=== PATIENT | female | born 1950 | race Caucasian/White ===

== ENCOUNTER 2022-02-25 00:33 | Day surgery (SDC) | payer MEDICARE, SELFPAY ==
[2022-02-07 15:41] VITALS: BMI 24.5
--- NOTE | 2022-02-24 14:26 | PM.HPGS ---
History of Present Illness History of Present Illness Consent: Risks, benefits, and alternatives have been discussed and questions answered. Patient agrees to proceed with procedure. Chief complaint: GERD Narrative: Rupinder Galvez is a 71 year old female Referred for investigation of chronic gastroesophageal reflux. She often has the discomfort after spicy foods. The discomfort can be just to the right of the epigastric area it will feel like a fullness lasting an hour so. She denies nausea vomiting or dysphagia. She has taken cljx-[id number] acid reducers and also Gas-X which seemed to give her some relief Review of Systems Review of Systems: All systems reviewed & are unremarkable except as noted in HPI and below PMFSH Past Medical History Medical History Allergies Anxiety Diverticular disease Hemorrhoids HLD (hyperlipidemia) HTN (hypertension) Mitral valve prolapse Post-menopausal Surgical History Surgical History History of bladder surgery History of hysterectomy Family History Family History Mother Patient's mother is Father Patient's father is Sibling Heart disease Hypertension Malignant neoplasm of prostate Social History Social History Smoking packs per day: 0.5 Smoking cigarettes per day: 10.0 Years smoked: 20 Smoking pack-years: 10.00 Smoking status: Former smoker Tobacco type: cigarettes Second hand tobacco smoke exposure: Yes Smoking end date: 10/16/08 Alcohol intake: never Substance use: never Substance use type: does not use Living arrangements: alone Gender identity (if verbalized by the patient): Female Spiritual care concerns: No Meds Home Medications and Allergies Home Medications Medication Instructions Recorded Confirmed Type alprazolam 0.25 mg tablet 0.25 mg PO TID PRN #90 tablet 10/26/20 02/07/22 Rx lisinopril 10 See Rx Instructions .ROUTE 02/08/21 02/07/22 Rx mg-hydrochlorothiazide 12.5 mg .COMPLEX #90 tablet tablet cetirizine 10 mg tablet 10 mg PO DAILY PRN 06/18/21 02/07/22 History d-mannose 500 mg capsule 500 mg PO PRN PRN 06/18/21 02/07/22 History famotidine 20 mg tablet 20 mg PO PRN PRN 12/20/21 02/07/22 History ciprofloxacin HCl 500 mg tablet 500 mg PO Q12H #20 tablet 01/19/22 02/07/22 Rx Allergies Allergy/AdvReac Type Severity Reaction Status Date / Time No Known Allergies Allergy Mild Verified 02/25/22 08:42 Exam Const: General: alert Orientation/consciousness: patient oriented x3 Resp: Auscultation: clear to auscultation bilaterally Cardio: Rhythm: regular rhythm GI: GI Palp: Yes Soft to palpation and No Tenderness to palpation present (GI) Neuro: General: patient oriented x3 Assessment and Plan Assessment and plan (1) GERD (gastroesophageal reflux disease): Code(s): K21.9 - Gastro-esophageal reflux disease without esophagitis Status: Acute Assessment and Plan: EGD with possible biopsy or dilatation or cautery.
[2022-02-25 08:42] VITALS: BP 135/60; PULSE 68; RESP 16; TEMP 36.1; O2SAT 100
[2022-02-25 08:51] VITALS: BMI 23.8
[2022-02-25] MEDS: LACTATED RINGERS 1,000 ML 150 ML IV CONT (08:52)
--- NOTE | 2022-02-25 09:01 | WPDANESEPPF ---
Anes - Initial Pre Proc Eval Procedure: Operation Date: 02/25/22 10:00 Proposed Procedures p Esophagogastroduodenoscopy - Dakota Knight MD Date/Time: 02/25/22 09:01 Surgeon: Dakota Knight MD Pre Op Diagnosis: GERD Patient Data Age: 71 Gender: F Height: 1.6 m Weight: 61 kg Last Vital Signs Temp 36.1 C L 02/25/22 08:42 Pulse 68 02/25/22 08:42 Resp 16 02/25/22 08:42 BP 135/60 02/25/22 08:42 Pulse Ox 100 02/25/22 08:42 Allergies Allergy/AdvReac Type Severity Reaction Status Date / Time No Known Allergies Allergy Mild Verified 02/25/22 08:42 Home Medications Medication Instructions Recorded Confirmed Type alprazolam 0.25 mg tablet 0.25 mg PO TID PRN #90 tablet 10/26/20 02/07/22 Rx lisinopril 10 See Rx Instructions .ROUTE 02/08/21 02/07/22 Rx mg-hydrochlorothiazide 12.5 mg .COMPLEX #90 tablet tablet cetirizine 10 mg tablet 10 mg PO DAILY PRN 06/18/21 02/07/22 History d-mannose 500 mg capsule 500 mg PO PRN PRN 06/18/21 02/07/22 History famotidine 20 mg tablet 20 mg PO PRN PRN 12/20/21 02/07/22 History ciprofloxacin HCl 500 mg tablet 500 mg PO Q12H #20 tablet 01/19/22 02/07/22 Rx Patient hx anesthesia problems: none Family hx anesthesia problems: none Results Review: All pre-operative results and documents have been reviewed as part of the pre-operative evaluation. [facility] Past Medical History Medical History Allergies Anxiety Diverticular disease Hemorrhoids HLD (hyperlipidemia) HTN (hypertension) Mitral valve prolapse Post-menopausal Surgical History Surgical History History of bladder surgery History of hysterectomy Family History Family History Mother Patient's mother is Father Patient's father is Sibling Heart disease Hypertension Malignant neoplasm of prostate Social History Social History Smoking packs per day: 0.5 Smoking cigarettes per day: 10.0 Years smoked: 20 Smoking pack-years: 10.00 Smoking status: Former smoker Tobacco type: cigarettes Second hand tobacco smoke exposure: Yes Smoking end date: 10/16/08 Alcohol intake: never Substance use: never Substance use type: does not use Living arrangements: alone Gender identity (if verbalized by the patient): Female Spiritual care concerns: No Anes - Eval Final PreProcedure Day of Procedure 02/25/22 09:01 Patient weight: normal Heart: regular rate and rhythm Lungs: clear to auscultation Airway: Mallampati scale class II Neurological: alert and oriented Last oral intake: >/= 8 hours ASA classification: II Emergent: no Anesthetic plan: proceed Anesthesia type and monitoring: general GIVS and standard monitoring Results Review: All pre-operative results and documents have been reviewed as part of the pre-operative evaluation. Informed Consent: The patient's anesthetic plan and its attendant risks and benefits were discussed with the patient/family/POA. Questions were solicited and answers provided to the satisfaction of the patient/family/POA.
[2022-02-25 10:13] VITALS: BP 98/59; PULSE 74; RESP 25; O2SAT 98
[2022-02-25 10:23] VITALS: BP 98/59; PULSE 73; RESP 25; O2SAT 98
[2022-02-25 10:33] VITALS: BP 98/59; PULSE 70; RESP 21; O2SAT 98
== END 2022-02-25 10:40 | disposition home or self-care (01) ==
PROVIDERS: PCP Internal Medicine; Visit Provider Internal Medicine Gastroenterology
PROC: 0DJ08ZZ Inspection of Upper Intestinal Tract, Via Natural or Artificial Opening Endoscopic (ICD-10-PCS; CPT 43235; principal; 2022-02-25 10:00)
DX: K21.9 Gastro-esophageal reflux disease without esophagitis (principal); K44.9 Diaphragmatic hernia without obstruction or gangrene; I10 Essential (primary) hypertension; E78.5 Hyperlipidemia, unspecified; I34.1 Nonrheumatic mitral (valve) prolapse; F41.9 Anxiety disorder, unspecified; Z87.891 Personal history of nicotine dependence
CPT/HCPCS: 43239; 87081; J2704; J7120

== ENCOUNTER 2022-03-21 09:32 | Outpatient (CLI) | payer MEDICARE, SELFPAY ==
--- NOTE | ~2022-03-21 | US_ITS ---
US abdomen complete EXAMINATION: US Abdomen Complete INDICATION: Abdominal pain PROCEDURE: Realtime High Resolution abdomen ultrasound. COMPARISON: No prior studies for comparison FINDINGS: There are gallstones. No gallbladder wall thickening or pericholecystic fluid. Common bile duct measures 4 mm. Liver echotexture within normal limits without focal mass. Pancreas within normal limits. Pancreati c tail is obscured by bowel gas. Spleen contains coarse calcification. Otherwise, the spleen is unre markable.. Renal echotexture is within normal limits bilaterally without hydronephrosis, contour defo rming mass or renal stone. Right kidney measures 10.1 cm. Left kidney measures 10.3 cm. Visualized aspects of the aorta and IVC are within normal limits. Portal vein is patent. No sonograph ic Gan's sign indicated by the technologist. IMPRESSION: 1: Cholelithiasis. Reviewed, dictated and finalized at location B. IMPRESSION: 1: Cholelithiasis.
== END 2022-03-21 09:33 | disposition home or self-care (01) ==
PROVIDERS: PCP Internal Medicine; Visit Provider Internal Medicine
DX: R10.9 Unspecified abdominal pain (principal); K80.20 Calculus of gallbladder without cholecystitis without obstruction
CPT/HCPCS: 76700

== ENCOUNTER 2022-05-22 12:59 | Emergency (ER) | payer MEDICARE, SELFPAY ==
[2022-05-22 13:07] VITALS: BP 130/69; PULSE 96; RESP 16; TEMP 37.1; O2SAT 100
--- NOTE | 2022-05-22 13:21 | ED.URI ---
HPI - URI/Sore Throat General Chief Complaint: Upper Respiratory Infection Stated Complaint: congestion,sore throat,cough Time Seen by Provider: 05/22/22 13:07 Source: patient Mode of arrival: ambulatory Limitations: no limitations History of Present Illness HPI Narrative: Patient presents today complaining of sore throat, nasal congestion, postnasal drip, and mild cough. Symptoms began last night immediately after pulling weeds in her yard. States she believes this is due to the mold in the environment currently and states she believes she has a massive sinus infection and needs a Z-Ricardo because that is the only thing that helps her. She has tried no medication for symptoms prior to arrival, but states she does take Zyrtec somewhat daily. Related Data Home Medications Medication Instructions Recorded Confirmed cetirizine 10 mg tablet (Zyrtec) 10 mg PO DAILY PRN Allergy Symptoms 06/18/21 05/20/22 d-mannose 500 mg capsule 500 mg PO PRN PRN uti 06/18/21 05/20/22 alprazolam 0.25 mg tablet 0.25 mg PO TID PRN Anxiety 05/20/22 05/20/22 pantoprazole 40 mg tablet,delayed 40 mg PO QAM 05/20/22 05/20/22 release Allergies Allergy/AdvReac Type Severity Reaction Status Date / Time No Known Allergies Allergy Mild Verified 05/20/22 10:34 Review of Systems Review of Systems: CONSTITUTIONAL: Denies body aches, fever, chills, or sweats. EYES: Denies visual changes, redness, or discharge. ENT: Denies rhinorrhea, or otalgia.+ Sore throat, congestion, postnasal drip CARDIOVASCULAR: Denies chest pain, palpitations, or edema. RESPIRATORY: Denies dyspnea.+ Cough GASTROINTESTINAL: Denies abdominal pain, nausea, vomiting, or diarrhea. GENITOURINARY: Denies dysuria or hematuria. SKIN: Denies rash, itching, or wounds. MUSCULOSKELETAL: Denies back pain, joint pain, or myalgia. NEUROLOGIC: Denies headache, numbness, tingling, or weakness. PSYCH: Denies depression or anxiety. [facility] Past Medical History Medical History Allergies Anxiety Diverticular disease Hemorrhoids HLD (hyperlipidemia) HTN (hypertension) Mitral valve prolapse Post-menopausal Surgical History Surgical History History of bladder surgery History of hysterectomy Family History Family History Mother Patient's mother is Father Patient's father is Sibling Heart disease Hypertension Malignant neoplasm of prostate Social History Social History Smoking packs per day: 0.5 Smoking cigarettes per day: 10.0 Years smoked: 25 Smoking pack-years: 12.50 Smoking status: Former smoker Tobacco type: cigarettes Second hand tobacco smoke exposure: Yes Smoking end date: 05/20/09 Alcohol intake: current Substance use: never Substance use type: does not use Gender identity (if verbalized by the patient): Female Spiritual care concerns: No Comments At time of signature, I have reviewed and agree with nursing past medical, surgical, social and family history unless otherwise noted. Please see nursing chart for further information. There is no relevant family history pertinent to the presenting complaint Exam Narrative: GENERAL: Well-appearing, well-nourished, and in no acute distress. HEAD: Normocephalic, atraumatic. EYES: EOMI. No redness or drainage. Conjunctivae normal. ENT: Mucous membranes pink and moist. Nares mildly congested. Bilateral turbinates are slightly swollen and nonedematous with small amount of rhinorrhea. Nontender frontal and maxillary sinuses. TMs normal bilaterally. Throat normal. Uvula midline. NECK: Normal AROM. Supple. No lymphadenopathy. CHEST: No respiratory distress. Clear to auscultation. HEART: Regular rate and rhythm. No mu
== END 2022-05-22 13:26 | disposition home or self-care (01) ==
LOC: EXPGOSH 13:01
PROVIDERS: Emergency Provider Nurse Practitioner; PCP Internal Medicine
DX: J30.2 Other seasonal allergic rhinitis (principal); Z87.891 Personal history of nicotine dependence; E78.5 Hyperlipidemia, unspecified; I10 Essential (primary) hypertension; I34.1 Nonrheumatic mitral (valve) prolapse; F41.9 Anxiety disorder, unspecified
CPT/HCPCS: 99211; G0463

== ENCOUNTER 2022-06-21 07:48 | Outpatient (CLI) | payer MEDICARE, SELFPAY ==
--- NOTE | 2022-06-21 08:00 | ECG_ITS ---
Measurements Intervals [place] Rate: 75 P: 70 [place]: 141 QRS: 64 QRSD: 92 T: 1 QT: 364 QTc: 408 Interpretive Statements SINUS RHYTHM BORDERLINE ST-T WAVE ABNORMALITY- INFERIOR LEADS BASELINE ARTIFACT- I, II, III, AVR, AVL, AVF BORDERLINE ECG NO PREVIOUS ECG AVAILABLE FOR COMPARISON Electronically Signed On 06-21-2022 9:28:07 CDT by Malachi Vasquez D.O.
[2022-06-21 08:29] LABS: Anion Gap 7 mmol/L (8-16); Blood Urea Nitrogen 18 mg/dL (7-17); Calcium 9.1 mg/dL (8.4-10.2); Carbon Dioxide 32 mmol/L (22-30); Chloride 100 mmol/L (98-107); Estimated Glomerular Filt Rate > 60; Glucose 90 mg/dL (65-110); Sodium 139 mmol/L (137-145)
[2022-06-21 08:33] LABS: Alanine Aminotransferase 14 U/L (6-35); Albumin Level 4.3 g/dL (3.5-5.1); Alkaline Phosphatase 64 U/L (38-126); Amylase 87 U/L (30-110); Aspartate Amino Transferase 23 U/L (14-36); Bilirubin,Total 0.4 mg/dL (0.2-1.3); Lipase 55 U/L (23-300)
== END 2022-06-21 07:49 | disposition home or self-care (01) ==
LOC: ANHSURGERY 07:52
PROVIDERS: Anesthesiology; PCP Internal Medicine; Visit Provider Surgery
DX: K80.10 Calculus of gallbladder with chronic cholecystitis without obstruction (principal); I10 Essential (primary) hypertension; E78.5 Hyperlipidemia, unspecified; Z79.899 Other long term (current) drug therapy
CPT/HCPCS: 36415; 80048; 80076; 82150; 83690; 86850; 86900; 86901; 93005

== ENCOUNTER 2022-06-23 00:31 | Day surgery (SDC) | payer MEDICARE, SELFPAY ==
[2022-05-20 10:37] VITALS: BMI 24.2
--- NOTE | 2022-05-20 10:44 | PC.NURSE ---
Report to the Outpatient Waiting Room, entrance under the green pavilion located off [facility], at time _1000_ on date _[id number]_. OR Time: _1200_. - You and your visitor will be asked a series of questions to screen for COVID 19 for your protection. - Only one visitor is allowed at this time. - The patient visitor is requested to leave or wait in car when not with patient. - A mask is required within the hospital. Patients may have clear liquids (water, carbonated beverages, clear teas, apple juice) until 3 hours prior to surgery with a maximum of 20 ounces. - No food from midnight until time of surgery Take the following medications with a SIP of water the morning of surgery: None Medications to discontinue per physician ___None Date to take last dose Please no make-up, nail central african, hairspray, perfume, deodorant, or body powder the day of surgery. No jewelry (including any body piercings) or valuables the day of surgery, leave them at home. Please take a shower or bath the morning of, surgery with Hebiclense an antibacterial soap. Wear comfortable, loose fitting clothing. - Jewelry must be removed prior to entering the operating room. Rings and piercings that are not removed may be cut off. - The hospital will not accept responsibility for valuables. - Please leave all valuables, including medications, at home the day of surgery. If you are going home after surgery, a licensed pedicab driver must drive you home. - NO public transportation without another adult. - We recommend that an adult stay with you for 24 hours following discharge. - We also recommend that you do not drive, make important decision, drink alcoholic beverages, or take any drugs that were not prescribed by your health care provider for at least 24 hours after your discharge time. Follow any additional instructions given to you from your surgeon. If you or anyone in your household have experienced Covid symptoms in the past week, please notify your surgeon or the nurse liaison at the phone number below for possible testing. Telephone instructions given to ___Patient____and asked if any additional questions and then verbalized understanding. Patient advised to call surgeon office or pre surgery nurse liaison [phone] if any additional questions.
--- NOTE | 2022-06-15 13:17 | PC.NURSE ---
PRE-OP INSTRUCTIONS, PLEASE READ CAREFULLY Report to the Outpatient Waiting Room, entrance under the green pavilion located off [facility], at time _1130_ on date _06/23/22_. OR Time: _1:30 PM_. - You and your visitor will be asked to self-screen and do not enter if you have any COVID symptoms. - Only one visitor and NO children visitors are allowed at this time. - The patient visitor is requested to leave or wait in car when not with patient due to restrictions. - A mask is required within the hospital. Patients may have clear liquids (water, carbonated beverages, clear teas, apple juice) until 3 hours prior to surgery (1030 AM) with a maximum of 20 ounces. - No food from midnight until time of surgery Take the following medications with a SIP of water the morning of surgery: NONE Medications to discontinue per physician NONE , Date to take last dose Please no make-up, nail kiswahili, hairspray, perfume, deodorant, or body powder the day of surgery. No jewelry (including any body piercings) or valuables the day of surgery, leave them at home. Please take a shower or bath the night before, or the morning of, surgery with an antibacterial soap. Wear comfortable, loose fitting clothing. - Jewelry must be removed prior to entering the operating room. Rings and piercings that are not removed may be cut off. - The hospital will not accept responsibility for valuables. - Please leave all valuables, including medications, at home the day of surgery. If you are going home after surgery, a licensed dedicated intermodal truck driver must drive you home. - NO public transportation without another adult. - We recommend that an adult stay with you for 24 hours following discharge. - We also recommend that you do not drive, make important decision, drink alcoholic beverages, or take any drugs that were not prescribed by your health care provider for at least 24 hours after your discharge time. Follow any additional instructions given to you from your surgeon. [facility] SH[facility] AM OF SURGERY If you or anyone in your household have experienced Covid symptoms in the past week, please notify your surgeon or the nurse liaison at the phone number below for possible testing. Telephone instructions given to ____PT and asked if any additional questions and then verbalized understanding. Patient advised to call surgeon office or pre surgery nurse liaison [phone] if any additional questions.
[2022-06-15 13:20] VITALS: BMI 24.2
--- NOTE | 2022-06-22 15:48 | PM.SD2 ---
Same Day Admit/Disch: HPI History of Present Illness Chief complaint: Chronic Cholecystitis with Stones Narrative: Rupinder Galvze is a 71 year old female With complaints of postprandial right upper quadrant and epigastric pain associated with nausea. She had an ultrasound which showed gallstones. She had some improvement with starting on Protonix but continues to have right upper quadrant aching pain as well as some nausea especially after eating fatty or greasy meals. She is taken to surgery now for laparoscopic cholecystectomy. [facility] Past Medical History Medical History Allergies Anxiety Diverticular disease Hemorrhoids HLD (hyperlipidemia) HTN (hypertension) Mitral valve prolapse Post-menopausal Surgical History Surgical History History of bladder surgery History of hysterectomy Family History Family History Mother Patient's mother is Father Patient's father is Sibling Heart disease Hypertension Malignant neoplasm of prostate Social History Social History Smoking packs per day: 0.5 Smoking cigarettes per day: 10.0 Years smoked: 20 Smoking pack-years: 10.00 Smoking status: Former smoker Tobacco type: cigarettes Second hand tobacco smoke exposure: Yes Smoking end date: 10/16/08 Alcohol intake: never Substance use: never Substance use type: does not use Living arrangements: alone Gender identity (if verbalized by the patient): Female Spiritual care concerns: No Same Day Admit/Disch: Med Pre-admit Medications Home Medications Medication Instructions Recorded Confirmed Type cetirizine 10 mg tablet (Zyrtec) 10 mg PO DAILY PRN Allergy Symptoms 06/18/21 06/23/22 History d-mannose 500 mg capsule 500 mg PO PRN PRN uti 06/18/21 06/23/22 History lisinopril 10 See Rx Instructions .Route 03/01/22 06/23/22 Rx mg-hydrochlorothiazide 12.5 mg .COMPLEX #90 tabs tablet alprazolam 0.25 mg tablet 0.25 mg PO TID PRN Anxiety 05/20/22 06/23/22 History pantoprazole 40 mg tablet,delayed 40 mg PO QAM 05/20/22 06/23/22 History release hydrocodone 5 mg-acetaminophen 325 1 - 2 tablet PO Q6H PRN pain #10 06/23/22 Rx mg tablet tabs ibuprofen 600 mg tablet 600 mg PO Q6H PRN pain #14 tabs 06/23/22 Rx Exam Const: General: comfortable, no acute distress, alert and awake HENMT: Head: normocephalic and atraumatic Mouth: Yes Normal oral and palatal mucosa present Eyes: Conjunctivae: conjunctivae normal Pupils: Equal, round and reactive pupils present EOM: EOMs intact bilaterally Neck: Neck: normal visual inspection, no lymphadenopathy and nontender Resp: Effort & Inspection: normal respiratory effort Auscultation: clear to auscultation bilaterally Cardio: Rate: regular rate Rhythm: regular rhythm Heart sounds: no gallops, no murmurs and no rubs GI: Inspection: non-distended GI Palp: Yes Soft to palpation, No Tenderness to palpation present (GI), No Hepatomegaly present and No Splenomegaly present Skin: Lesions: no lesions Rashes: no rashes Neuro: General: no focal motor deficits and CN's II-XI intact bilaterally Cranial nerves: Yes Equal, round and reactive pupils present, Yes Bilaterally intact EOM present, Yes facial symmetry and Yes Midline tongue present Speech: normal speech Motor exam (neuro): 5/5 motor strength present throughout and Motor abnormalities not present Extrem: General: no clubbing, cyanosis or edema and edema Psych: Affect: normal affect Thought process: Normal thought process present Insight: Good insight present (Psych) DS: Summary Time Spent with Patient Time attestation: Total time spent providing and/or coordinating discharge services: DS: Admitting Diagnosis Discharg
[2022-06-23] VITALS (8 sets, daily range): BP systolic 90–145; BP diastolic 45–88; PULSE 49–75; RESP 12–16; TEMP 36.5–36.6; O2SAT 100
[2022-06-23] MEDS: ACETAMINOPHEN 500 MG TABLET 1000 MG PO (12:21)
[2022-06-23] MEDS: LACTATED RINGERS 1,000 ML 30 ML IV CONT ×2 (12:38→16:26)
[2022-06-23] MEDS: KETOROLAC 15 MG/ML VIAL (*BKC) IV PUSH (12:39)
--- NOTE | 2022-06-23 12:49 | SUR.PREOP ---
pt informed delay in procedure.
--- NOTE | 2022-06-23 13:00 | WPDHPUPDATE1 ---
History and Physical Update Update Date/Time: 06/23/22 13:00 History and Physical has been reviewed, including an updated exam of the patient. There are NO changes in the patient's condition. Risks, benefits, and alternatives have been discussed and questions answered. Patient agrees to proceed with procedure.
--- NOTE | 2022-06-23 13:47 | WPDANESEPPF ---
Anes - Initial Pre Proc Eval Procedure: Operation Date: 06/23/22 14:00 Proposed Procedures p Laparoscopic Cholecystectomy - Asaf Mendes MD Date/Time: 06/23/22 13:47 Surgeon: Asaf Mendes MD Pre Op Diagnosis: Chronic Cholecystitis with Stones Patient Data Age: 71 Gender: F Height: 1.57 m Weight: 59.1 kg Last Vital Signs Temp 36.5 C 06/23/22 11:58 Pulse 75 06/23/22 11:58 Resp 16 06/23/22 11:58 BP 119/88 06/23/22 11:58 Pulse Ox 100 06/23/22 11:58 O2 Del Method Room Air 06/23/22 11:58 Allergies Allergy/AdvReac Type Severity Reaction Status Date / Time No Known Allergies Allergy Mild Verified 06/15/22 13:13 Home Medications Medication Instructions Recorded Confirmed Type cetirizine 10 mg tablet (Zyrtec) 10 mg PO DAILY PRN Allergy Symptoms 06/18/21 06/23/22 History d-mannose 500 mg capsule 500 mg PO PRN PRN uti 06/18/21 06/23/22 History lisinopril 10 See Rx Instructions .Route 03/01/22 06/23/22 Rx mg-hydrochlorothiazide 12.5 mg .COMPLEX #90 tabs tablet alprazolam 0.25 mg tablet 0.25 mg PO TID PRN Anxiety 05/20/22 06/23/22 History pantoprazole 40 mg tablet,delayed 40 mg PO QAM 05/20/22 06/23/22 History release Patient hx anesthesia problems: none Family hx anesthesia problems: none Results Review: All pre-operative results and documents have been reviewed as part of the pre-operative evaluation. [facility] Past Medical History Medical History Allergies Anxiety Diverticular disease Hemorrhoids HLD (hyperlipidemia) HTN (hypertension) Mitral valve prolapse Post-menopausal Surgical History Surgical History History of bladder surgery History of hysterectomy Family History Family History Mother Patient's mother is Father Patient's father is Sibling Heart disease Hypertension Malignant neoplasm of prostate Social History Social History Smoking packs per day: 0.5 Smoking cigarettes per day: 10.0 Years smoked: 20 Smoking pack-years: 10.00 Smoking status: Former smoker Tobacco type: cigarettes Second hand tobacco smoke exposure: Yes Smoking end date: 10/16/08 Alcohol intake: never Substance use: never Substance use type: does not use Living arrangements: alone Gender identity (if verbalized by the patient): Female Spiritual care concerns: No Anes - Eval Final PreProcedure Day of Procedure 06/23/22 13:47 Patient weight: normal Heart: regular rate and rhythm Lungs: clear to auscultation Airway: Mallampati scale class II Neurological: alert and oriented Last oral intake: >/= 8 hours ASA classification: II Emergent: no Anesthetic plan: proceed Anesthesia type and monitoring: general ETT and standard monitoring Results Review: All pre-operative results and documents have been reviewed as part of the pre-operative evaluation. Informed Consent: The patient's anesthetic plan and its attendant risks and benefits were discussed with the patient/family/POA. Questions were solicited and answers provided to the satisfaction of the patient/family/POA.
[2022-06-23] MEDS: ceFAZolin 2 GM/D5W 50 ML 2 GM/50 ML BAG IVPB (14:56)
--- NOTE | 2022-06-23 15:49 | P.OP_ITS ---
Procedure Note - Detailed Date of Procedure 06/23/22 Pre-op Diagnosis Chronic Cholecystitis with Stones Post-op Diagnosis Same Procedure Performed Laparoscopic cholecystectomy Surgeon Asaf Mendes MD [employer] Kevin MCMAHAN Anesthesia General and Local (0.25% bupivacaine with epinephrine) Indications Patient has had postprandial right upper quadrant pain particularly after greasy or fatty foods. She had an ultrasound that showed gallstones. She is taken to surgery now for laparoscopic cholecystectomy. Findings Mild chronic inflammation. No biliary ductal dilatation. No liver abnormalities. No large stones seen. Description of Procedure Patient was taken to surgery and induced into general anesthesia. The abdomen is prepped and draped. Trocars were placed in the usual fashion using local anesthetic and applied Medical optical trocars. A 5 mm camera was used. The gallbladder was freed from adhesions. The laparoscopic aspirator was used and the gallbladder was decompressed. The cholecystotomy was closed with a Vicryl endoloop. The gallbladder was then retracted anterosuperiorly. Dissection was carried out in the cholecystohepatic triangle. The cystic duct and cystic artery were dissected out very clearly. The gallbladder was dissected off the liver at its lower 3rd. Critical view was achieved. I then securely clipped and divided the cystic duct and cystic artery. The gallbladder was then further dissected free of its attachments to the liver. It was then placed in an Endo- Catch bag and retrieved through the 10 11 epigastric trocar site. We replaced the epigastric trocar and then reviewed the right upper quadrant. The gallbladder fossa and right upper quadrant were suctioned and irrigated repeatedly. Any residual blood was suctioned away. There was no evidence of bleeding or bile leakage. We then evacuated CO2 and removed the trocar sleeves. Skin wounds were closed with subcuticular 4-0 Monocryl skin suture. The wounds were dressed with Exofin surgical adhesive. Patient was awakened and taken to recovery in good condition. Sponge and needle counts were correct x2. Estimated Blood Loss -10 Drains No Packing No Pathology Yes (Gallbladder) Complications No immediate complications Condition Stable Disposition PACU [facility] Billing Surgery - Charge Forward: Surgery Billing (Laparoscopic cholecystectomy)
[2022-06-23] MEDS: fentaNYL CITRATE INJ (*CRX) 100 MCG/2 ML VIAL 25 MCG IV PUSH ×4 (16:00→16:20)
[2022-06-23] MEDS: ONDANSETRON INJ 4 MG/2 ML VIAL IV PUSH (17:14)
[2022-06-23] MEDS: diphenhydrAMINE HCl INJ 50 MG/ML VIAL 25 MG IV PUSH (17:43)
== END 2022-06-23 18:18 | disposition home or self-care (01) ==
PROVIDERS: PCP Internal Medicine; Visit Provider Surgery
PROC: 0FT44ZZ Resection of Gallbladder, Percutaneous Endoscopic Approach (ICD-10-PCS; CPT 47562; principal; 2022-06-23 14:00)
DX: K81.1 Chronic cholecystitis (principal); I10 Essential (primary) hypertension; E78.5 Hyperlipidemia, unspecified; I34.1 Nonrheumatic mitral (valve) prolapse; F41.9 Anxiety disorder, unspecified; Z87.891 Personal history of nicotine dependence
CPT/HCPCS: 47562; 88304; A9270; C1713; J0690; J1100; J1200; J1885; J2250; J2405; J2704; J2710; J3010; J7120

== ENCOUNTER 2023-12-11 07:02 | Emergency (ER) | payer MEDICARE, SELFPAY ==
--- NOTE | ~2023-12-11 | CT_ITS ---
EXAMINATION: CT abdomen pelvis w con INDICATION: Nausea and vomiting TECHNIQUE: Computed tomographic images of the abdomen and pelvis were obtained after the administrati on of 100 cc of Omnipaque 350 intravenous contrast. The dose-length product (DLP) was 234.43 mGy-cm. Automated exposure control and iterative reconstruction technique were employed. COMPARISON: None available FINDINGS: The lung bases are clear. The heart size is normal. Punctate calcifications in an otherwise normal spleen likely represent healed granulomatous disease. Changes of cholecystectomy are noted. T here is a 5 mm cyst in the right hepatic lobe. The pancreas and adrenal glands are normal. The kidney s are unremarkable. No pathologically enlarged abdominal or pelvic lymph nodes are identified. There is calcified atherosclerosis of the aorta and many of the other arteries. No free intraperitoneal gas or evidence of bowel obstruction. Colonic diverticulosis is present without evidence of diverticulit is. The appendix is normal. There is severe lumbar spondylosis. IMPRESSION: 1. No CT correlate for the patient's symptoms. Reviewed, dictated and finalized at location B. [employer]
[2023-12-11 07:06] VITALS: BP 142/70; PULSE 99; RESP 18; TEMP 36.6; O2SAT 99
[2023-12-11 07:30] VITALS: BP 116/78; PULSE 83; RESP 16; TEMP 36.6; O2SAT 100
[2023-12-11 07:33] LABS: Basophils Percent Auto 0.4 % (0.2-1.2); Eosinophils Percent Auto 0.5 % (0-4.4); Hematocrit 40.2 % (37.0-47.0); Hemoglobin 13.8 g/dL (12.0-15.0); Immature Granulocyte Absolute 0.03 K/mm3 (0.00-0.031); Immature Granulocyte Percent A 0.4 % (0-0.5); Lymphocytes Absolute Auto 1.15 K/mm3 (0.9-3.2); Lymphocytes Percent Auto 15.2 % (18.3-44.2); Mean Corpuscular HGB Conc 34.3 g/dl (32-36); Mean Corpuscular Hemoglobin 30.1 pg (26-34); Mean Corpuscular Volume 87.8 fl (80-100); Mean Platelet Volume 8.8 fl (7.4-10.4); Monocytes Absolute Auto 0.4 K/mm3 (0.1-0.6); Monocytes Percent Auto 4.6 % (2.6-8.5); Neutrophils Percent Auto 78.9 % (45.5-73.1); Platelet Count Result 321 k/mm3 (150-375); Red Blood Count 4.58 M/mm3 (4.2-5.4); Red Cell Distribution Width 12.3 % (11.5-14.5); White Blood Count 7.6 K/mm3 (4.5-10.0)
[2023-12-11 07:43] LABS: Alanine Aminotransferase 16 U/L (6-35); Albumin Level 4.4 g/dL (3.5-5.1); Alkaline Phosphatase 70 U/L (38-126); Anion Gap 8 mmol/L (8-16); Aspartate Amino Transferase 24 U/L (14-36); Bilirubin,Total 0.7 mg/dL (0.2-1.3); Blood Urea Nitrogen 12 mg/dL (7-17); Calcium 9.3 mg/dL (8.4-10.2); Carbon Dioxide 28 mmol/L (22-30); Chloride 96 mmol/L (98-107); Estimated CRCL calculation 58 ml/min; Estimated Glomerular Filt Rate > 60; Glucose 126 mg/dL (65-110); Lipase 31 U/L (23-300); Potassium 3.6 mmol/L (3.4-5.0); Sodium 132 mmol/L (137-145)
[2023-12-11 07:45] VITALS: PULSE 88; RESP 23; O2SAT 100
--- NOTE | 2023-12-11 07:51 | ED.GENADULT ---
HPI - General Adult General Chief complaint: Nausea/Vomiting/Diarrhea Stated complaint: Nausea, abd pain Time Seen by Provider: 12/11/23 07:13 History of Present Illness HPI narrative: 73 old female presenting to the emergency department for evaluation nausea and vomiting. Patient reports approximately 2 weeks ago she had onset of nausea and vomiting, over the course of the last week it is just progress to nausea. Patient did have some issues with constipation over the course of the last week but patient did start taking MiraLax and patient reports having a productive bowel movement this morning. Patient states she is no longer constipated. Patient denies any associated abdominal pain. Patient states it does ?feel like I have a bacterial infection?. Patient does have prior history of diverticulitis. Patient has prior history of hysterectomy and cholecystectomy Related Data Home Medications Medication Instructions Recorded Confirmed estradiol 0.01% (0.1 mg/gram) 1 g vaginal WEEKLY 11/23/23 11/23/23 vaginal cream Allergies Allergy/AdvReac Type Severity Reaction Status Date / Time chlorhexidine gluconate AdvReac Severe Itching Uncoded 12/11/23 07:08 Review of Systems Review of Systems: All systems reviewed & are unremarkable except as noted in HPI and below PMFSH Past Medical History Medical History Allergies Anxiety Diverticular disease Hemorrhoids HLD (hyperlipidemia) HTN (hypertension) Mitral valve prolapse Post-menopausal Surgical History Surgical History History of bladder surgery History of hysterectomy Hx laparoscopic cholecystectomy 06/23/22 Family History Family History Mother Patient's mother is Father Patient's father is Sibling Heart disease Hypertension Malignant neoplasm of prostate Social History Social History Smoking packs per day: 0.5 Smoking cigarettes per day: 10.0 Years smoked: 25 Smoking pack-years: 12.50 Smoking status: Former smoker Tobacco type: cigarettes Second hand tobacco smoke exposure: Yes Smoking end date: 05/20/09 Alcohol intake: current Substance use: never Substance use type: does not use Living arrangements: alone Occupation/Education: retired Gender identity (if verbalized by the patient): Female Spiritual care concerns: No Exam Narrative: APPEARANCE: Well appearing, no pain, no distress, well-nourished. HEAD: normocephalic, atraumatic. EYES: PERRLA/EOMI, conjunctivae clear. NOSE: Normal no drainage EARS:TMS clear with good light reflex. THROAT: Pharynx clear, no exudate. NECK: Supple. No adenopathy, no masses. RESPIRATORY: Airway patent, respirations nonlabored. Clear to auscultation bilaterally, no rales, rhonchi, wheezing. CARDIOVASCULAR: Regular rate and rhythm without murmurs rubs or gallops. ABDOMINAL: Soft, nontender, nondistended, normal bowel sounds MUSCULOSKELETAL: Moves all extremities. Strength/ROM intact, No edema, No calf tenderness. NEURO: Alert. Cranial nerves II through XII intact. Good gait. Good coordination SKIN: Warm, dry. Normal Color Course Course Emergency Course: Patient had negative workup and patient was discharged home with advice for MiraLax and Zofran Vital Signs Vital signs: Vital Signs Temperature 97.8 F 12/11/23 07:06 Pulse Rate 99 12/11/23 07:06 Respiratory Rate 18 12/11/23 07:06 Blood Pressure 142/70 H 12/11/23 07:06 Pulse Oximetry 99 12/11/23 07:06 Oxygen Delivery Room Air 12/11/23 07:06 Temperature 98.0 F 12/11/23 09:16 Pulse Rate 73 12/11/23 09:16 Respiratory Rate 18 12/11/23 09:16 Blood Pressure 133/78 12/11/23 09:16 Pulse Oximetry 100 12/11/23 09:16 Oxygen D
[2023-12-11] MEDS: SODIUM CHLORIDE 0.9% IV 1,000 ML 999 ML IV CONT (07:54)
[2023-12-11] MEDS: ONDANSETRON INJ 4 MG/2 ML VIAL IV PUSH (07:55)
[2023-12-11 08:35] VITALS: BP 123/88; PULSE 74; RESP 19; TEMP 36.7; O2SAT 100
[2023-12-11 08:36] LABS: Appearance Urine Clear (Clear); Bilirubin Urine Negative (Negative); Blood Urine Negative (Negative); Color Urine Yellow (Yellow); Glucose Urine UA Negative (Negative); Ketones Urine Negative (Negative); Leukocyte Esterase Ur Negative LEU/UL (Negative); Nitrate Urine Negative (Negative); Protein Urine Negative (Negative); Urobilinogen Urine 0.2 mg/dL (<2.0)
[2023-12-11 08:42] LABS: Add Urine Microscopic? NO; Specific Grav Ur 1.039 (1.001-1.035)
[2023-12-11 09:16] VITALS: BP 133/78; PULSE 73; RESP 18; TEMP 36.7; O2SAT 100
== END 2023-12-11 09:34 | disposition home or self-care (01) ==
PROVIDERS: Emergency Provider Emergency Medicine; PCP Physician Assistant
DX: R11.0 Nausea (principal); E78.5 Hyperlipidemia, unspecified; I10 Essential (primary) hypertension; I34.1 Nonrheumatic mitral (valve) prolapse; F41.9 Anxiety disorder, unspecified; Z87.891 Personal history of nicotine dependence; Z90.710 Acquired absence of both cervix and uterus; Z90.49 Acquired absence of other specified parts of digestive tract
CPT/HCPCS: 36415; 74177; 80053; 81003; 83690; 85025; 96361; 96374; 99284; J2405; J7030; Q9967